=== PATIENT | female | born 1950 | race Caucasian/White ===

== ENCOUNTER 2024-05-01 08:55 | Emergency (ER) | payer OTHER ==
[~2024-05-01] VITALS: Ht 160 cm; Wt 98.9 kg
[2024-05-01 09:01] VITALS: BP 183/79; PULSE 89; RESP 18; TEMP 97.8; O2SAT 100
--- NOTE | 2024-05-01 10:15 | ERN ---
General Chief Complaint: Rectal Bleed Stated Complaint: RECTAL BLEED Time Seen by MD: 09:53 History of Present Illness Initial Comments This is a case of 74-year-old female with a past medical history of hemorrhoids, diabetes mellitus type 2, high cholesterol, hypertension, restless leg syndrome who presented to the ER with the complaints of rectal bleeding since last night. She states that she has been bleeding from her external hemorrhoids not associated with pain since last night which has improved today. She denies fev er, chills, cough, cold, shortness of breath, nausea, vomiting, chest pain, palpitations, abdominal pain, burning sensation when urinating/increased frequency of urination, constipation/diarrhea. She is currently not on any blood thinners or aspirin. Allergies: Coded Allergies: Bxmpcrs-PSM-NfF Reductase Inhibitor (Unverified Allergy, Unknown, 05/01/24) Past Medical History Past Medical History: Diabetes-Type II, High Cholesterol, Hypertension, Other Medical History Other: RESTLESS LEGS, Past Surgical History: Bariatric Surgery Surgical History Other: LAP BAND ROS Dictation CONSTITUTIONAL: No chills, no fever, no weakness, no diaphoresis, no malaise. HEAD/FACE: No signs of trauma. EENT: No eye pain, no blurred vision, no tearing, no double vision, no ear pain, no ear discharge, no nose pain, no nasal congestion, no throat pain, no throat swelling, no mouth pain. RESPIRATORY: No cough, no orthopnea, no SOB, no stridor, no wheezing. CARDIOVASCULAR: No chest pain, no edema, no palpitations, no syncope. GASTROINTESTINAL/ABDOMINAL: No abdominal pain, no constipation, no diarrhea, no nausea, no vomiting. GENITOURINARY: MILD Active bleeding from rectal region, No abnormal discharge, no dysuria, no frequent urination, no hematuria. No complaints of pain in the genitals. MUSCULOSKELETAL: No back pain, no gout, no joint pain, no joint swelling, no muscle pain, no muscle stiffness, no neck pain. INTEGUMENTARY: No change in color, no change in hair/nails, no dryness, no lesion, no lumps, no rash. NEUROLOGICAL/PSYCH: No anxiety, not depressed, no emotional problem, no headache, no numbness, no pre-existing deficit, no history of seizures, no tremors, no weakness. HEMATOLOGIC/LYMPHATIC, no history of blood clots, no apparent bleeding, no bruising, glands not swollen. All Systems Negative, Except as Noted. Physical Exam Physical Exam Dictation Physical Exam Dictation VITAL SIGNS: Reviewed. GENERAL APPEARANCE: Alert, oriented x3, no acute distress, obese. HEAD AND FACE: Non-traumatic. EYES: PERRL, pink conjunctivas, eyelid no trauma, anterior chamber clear. EARS: Pinnas intact and no signs of trauma or erythema. Ear canals clear and no discharge. TMs no erythema. NOSE: No discharge, no bleeding. OROPHARYNX: Mouth normal, teeth no caries, tongue pink. Pharynx clear, no erythema. Tonsils no exudates, no abscesses noted. Mucous membrane moist. NECK: Supple, non-tender, no thyromegaly, no masses, no JVD, no bruits. BREAST: Deferred. CHEST: No tenderness, no crepitus, no paradoxical movement, no retractions. LUNGS: Clear, well-ventilated, symmetric, no rales, no wheezing, no rhonchi, no stridor, good breath sounds bilaterally. HEART: Regular rate, regular rhythm, no murmur, no gallops. VASCULAR: Mild bilateral lower extremity edema ABDOMEN: Soft, positive bowel sounds, nondistended, no guarding, nontender, no rebound, no Martinez's sign, no hernias. RECTAL: External hemorrhoids are observed at 12, 3 and 5: 30 clock positions. The hemorrhoids are not thrombosed and there is evidence of mild active bleeding. The surrounding perianal area appears normal, with no signs of erythema, excoriation or fissures noted. No other abnormalities are detected on external inspection. GENITAL: Deferred. NEUROLOGICAL: Normal speech, gross motor function intact, gross sensory function intact. MUSCULOSKELETAL: Neck nontender, full range of motion, back nontender, full range of motion. EXTREMITIES: Nontender, full range of motion. SKIN: Color pink, dry, no turgor, no rash, no lacerations, no abrasions, no contusions. LYMPHATICS: Deferred. MDM MDM Potential differential diagnoses include: External hemorrhoids Anal fissures THROMBOSED HEMORRHOIDS Assessment: I will re-evaluate the patient after treatment and diagnostic exams have returned to determine whether they require further testing, can be safely discharged home, or need admission for further treatment and evaluation. Given the social determinants of health affecting care, including literacy, ac cess to medical care, prescription drug management, and vuka-gve-frcspmi drugs, I will ensure that treatment plans are tailored accordingly. Revaluation : Patient is alert awake and oriented. Hemodynamically stable. External hemorrhoids are observed at 12, 3 and 5: 30 clock positions. The hemorrhoids are not thrombosed and there is evidence of mild active bleeding. The surrounding perianal area appears normal, with no signs of erythema, excoriation or fissures noted. No other abnormalities are detected on external inspection. Disposition: Patient is being discharged home. Advised to follow up with PCP within 1 week Apply tuha-pbt-[id number] hemorrhoid creams like preparation H cream as directed to reduce discomfort Consider using the Sitz baths for 10-15 minutes 2-3 times daily to minimize irritation Increased fiber intake by consuming fruits, vegetables, whole grains or fiber supplements Avoid straining during bowel movements. Consider increasing the stool softener dose and frequency Avoid prolonged sitting, especially on hot services to reduce pressure of the hemorrhoids Use upmn-soh-rgftkgr pain relievers such as acetaminophen/ibuprofen for discomfort as needed Monitor for symptoms like increased bleeding that does not stop after applying gentle pressure, severe pain, swelling or development of hard lumps, fever, chills or signs of infection such as pus or redness around the anal area and seek immediate medical attention in such scenario. ED Course Vital Signs Date Time Temp Pulse Resp B/P (MAP) Pulse Ox O2 Delivery O2 Flow Rate FiO2 05/01/24 09:01 97.9 89 18 183/79 100 Room Air* 0 21 05/01/24 08:58 97.9 89 18 183/79 100 Room Air DX & DISP Disposition: Discharge Departure Impression: Primary Impression: Hemorrhoids Critical Time: 30 minutes Condition: Stable Additional Instructions: Advised to follow up with PCP within 1 week Apply ubom-ezj-yjqtxye hemorrhoid creams like preparation H cream as directed to reduce discomfort Consider using the Sitz baths for 10-15 minutes 2-3 times daily to minimize irritation Increase fiber intake by consuming fruits, vegetables, whole grains or fiber supplements Avoid straining during bowel movements. Consider increasing the stool softener dose and frequency Avoid prolonged sitting, especially on hot services to reduce pressure of the hemorrhoids Use opze-ocv-skowfst pain relievers such as acetaminophen/ibuprofen for discomfort as needed Monitor for symptoms like increased bleeding , severe pain, swelling or development of hard lumps, fever, chills or signs of infection such as pus or redness around the anal area and seek immediate medical attention in such scenario. Referrals: SELF,REFERRAL (PCP) ATTESTATION BY PHYSICIAN I have seen and examined the patient. I reviewed the documentation, medical decision making, and treatment plan as noted by the resident above. I agree with the findings and plan of care. ERICA ESCOBEDO MD, MD May 01, 2024 10:15
== END 2024-05-01 11:30 | disposition home or self-care (01) ==
LOC: EDH 08:55
DX: K64.9 Unspecified hemorrhoids (principal); E11.9 Type 2 diabetes mellitus without complications; E78.00 Pure hypercholesterolemia, unspecified; I10 Essential (primary) hypertension; Z88.8 Allergy status to other drugs, medicaments and biological substances
CPT/HCPCS: 99281; 99283